=== PATIENT | male | born 1980 | race Hispanic/Latino ===

== ENCOUNTER 2022-08-28 21:31 | Emergency (ER) | payer SELFPAY ==
[2022-08-28] MEDS ORDERED: methylPREDNISolone Sod Succ/PF 125 MG/2 ML VIAL ONE (21:44)
[2022-08-28] MEDS ORDERED: diphenhydrAMINE 50 MG/ML VIAL ONE (21:44)
[2022-08-28] MEDS ORDERED: Famotidine/PF 20 mg/2ml Vial ONE (21:44)
== END 2022-08-28 22:29 | disposition home or self-care (01) ==
LOC: BURERS 21:31
DX: R07.89 Other chest pain (principal); R21 Rash and other nonspecific skin eruption; R00.2 Palpitations; T78.1XXA Other adverse food reactions, not elsewhere classified, initial encounter; F17.210 Nicotine dependence, cigarettes, uncomplicated
CPT/HCPCS: 96374; 96375; J1200; J2930; S0028